=== PATIENT | female | born 2000 ===

== ENCOUNTER → 2020-08-09 21:39 | Outpatient (ROUT) | payer OTHER, SELFPAY ==
[2020-08-09 22:03] LABS: Add Manual Diff / Slide Review NO; Basophils Absolute Auto 100 /uL (0-100); Basophils Percent Auto 0.7 % (0-2); Eosinophils Absolute Auto 200 /uL (0-450); Eosinophils Percent Auto 1.3 % (2-4); Hematocrit 36.7 % (36-46); Hemoglobin 11.9 g/dL (12.0-16.0); Lymphocytes Absolute Auto 3600 /uL (1100-4500); Lymphocytes Percent Auto 27.3 % (25-40); Mean Corpuscular HGB Conc 32.3 % (30-36); Mean Corpuscular Hemoglobin 27.5 PG (26-34); Mean Corpuscular Volume 85.2 fL (80-100); Monocytes Absolute Auto 700 /uL (0-900); Monocytes Percent Auto 5.6 % (3-14); Neutrophils Absolute Auto 8600 /uL (1500-7000); Neutrophils Percent Auto 65.1 % (50-75); Platelet Count 453 X10^3/uL (150-400); Red Blood Cell Count 4.31 X10^6/uL (4.0-5.2); Red Cell Distribution Width 14.2 % (11.6-14.8); White Blood Cell Count 13.3 X10^3/uL (4.5-11.0)
[2020-08-09 22:21] LABS: Follicle Stimulating Hormone 7.32 mIU/mL
[2020-08-09 22:22] LABS: Vitamin D 25 Hydroxy (D3) 16.4 ng/mL (30.0-100.0)
[2020-08-09 23:29] LABS: Hemoglobin A1C% w Est Avg Glu 6.5 % (4.0-6.0)
[2020-08-09 23:34] LABS: HEMOLYSIS < 15 (0-50); Iron 40 ug/dL (37-170)
[2020-08-09 23:36] LABS: Alanine Aminotransferase 18 IU/L (<35); Albumin Globulin Ratio 1.5 (1.0-2.8); Alkaline Phosphatase 83 U/L (38-126); Aspartate Aminotransferase 20 IU/L (14-36); BUN Creatinine Ratio 26.8 (6-22); Bilirubin Total 0.3 mg/dL (0.2-1.3); Blood Urea Nitrogen 15 mg/dL (7-17); Calcium 9.1 mg/dL (8.4-10.2); Carbon Dioxide 28 mmol/L (22-32); Chloride 102 mmol/L (98-107); Estimated Glomerular Filt Rate > 60.0 mL/min (>60); Globulin 2.7 g/dL (1.7-4.1); Glucose 124 mg/dL (70-100); HEMOLYSIS < 15 (0-50); Sodium 138 mmol/L (137-145); Total Protein 6.7 g/dL (6.3-8.2)
[2020-08-09 23:46] LABS: Percent Iron Saturation 9 % (15-50); Total Iron Binding Capacity 440 ug/dL (265-497); Transferrin 329 mg/dL (206-381)
[2020-08-09 23:55] LABS: Prolactin 15.4 ng/mL (3.0-18.6)
[2020-08-10 00:06] LABS: TSH w/ Reflex to FT4 2.99 uIU/mL (0.47-4.68)
[2020-08-10 00:12] LABS: Ferritin 12 ng/mL (6-137)
[2020-08-10 00:27] LABS: Vitamin B12 199 pg/mL (239-931)
[2020-08-11 19:27] LABS: Growth Hormone 0.4 ng/mL (0.0-10.0)
== END ==
PROVIDERS: Visit Provider Physician Assistant
DX: M79.2 Neuralgia and neuritis, unspecified (principal); E28.2 Polycystic ovarian syndrome; L68.0 Hirsutism; E66.01 Morbid (severe) obesity due to excess calories; D64.9 Anemia, unspecified
CPT/HCPCS: 80053; 82306; 82607; 82728; 83001; 83002; 83036; 83520; 83540; 83550; 84146; 84443; 85025; 86277